=== PATIENT | male | born 1940 | race Caucasian/White ===

== ENCOUNTER 2017-05-13 15:04 | Emergency (ER) | payer MEDICARE, BC ==
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
[2017-05-13] MEDS ORDERED: traMADol HCL 50 MG TABLET PO ONE (16:58)
[2017-05-13 17:05] VITALS: BP 141/76
== END 2017-05-13 18:11 | disposition home or self-care (01) ==
LOC: ER 15:04
DX: S16.1XXA Strain of muscle, fascia and tendon at neck level, initial encounter (principal); Z87.891 Personal history of nicotine dependence; W18.39XA Other fall on same level, initial encounter; Y93.E8 Activity, other personal hygiene; Y92.002 Bathroom of unspecified non-institutional (private) residence as the place of occurrence of the external cause; F32.9 Major depressive disorder, single episode, unspecified; G89.29 Other chronic pain